=== PATIENT | male | born 1970 | race Caucasian/White ===

== ENCOUNTER 2020-11-22 16:55 | Inpatient (IN) | payer OTHER ==
[2020-11-22 18:10] LABS: BASOPHIL 0.5 % (0-2); EOSINOPHIL 1.1 % (0-5); HCT 48.3 % (42.0-52.0); LYMPHOCYTE 23.6 % (15-48); MCH 28.6 pg (25.0-31.0); MCHC 33.1 g/dL (32.0-36.0); MCV 86.3 fL (78.0-100.0); MONOCYTE 8.2 % (0-12); MPV 9.5 fL (6.0-9.5); NEUTROPHIL 66.2 % (41-80); NRBC 0; PLT 202 K/uL (150-400); RDW 13.2 % (11.5-14.0); WBC 5.5 K/uL (4.0-10.5)
[2020-11-22 18:29] LABS: ALBUMIN 2.7 g/dL (3.4-5.0); BILIRUBIN - TOTAL 0.7 mg/dL (0.2-1.0); BUN/CREAT RATIO (CALC) 14.3 RATIO; CREATININE 0.77 mg/dL (0.67-1.17); GLOBULIN (CALCULATION) 4.6 g/dL; POTASSIUM 3.5 mmol/L (3.5-5.1); TOTAL PROTEIN 7.3 g/dL (6.4-8.2)
[2020-11-22 18:35] LABS: PRO-BNP 66 pg/mL (<125)
[2020-11-22 20:57] LABS: CORONAVIRUS 2019 SARS-COV-2 POSITIVE (NEGATIVE); INFLUENZA A NAA NEGATIVE (NEGATIVE)
[2020-11-23 04:23] LABS: BASOPHIL 0.4 % (0-2); EOSINOPHIL 0 % (0-5); HCT 47.5 % (42.0-52.0); HGB 15.6 g/dl (13.2-18.0); LYMPHOCYTE 13.4 % (15-48); MCH 28.8 pg (25.0-31.0); MCHC 32.8 g/dL (32.0-36.0); MCV 87.8 fL (78.0-100.0); MONOCYTE 2.9 % (0-12); MPV 9.5 fL (6.0-9.5); NRBC 0; PLT 218 K/uL (150-400); RBC 5.41 M/uL (4.70-6.00); RDW 13.2 % (11.5-14.0); WBC 5.2 K/uL (4.0-10.5)
[2020-11-23 04:25] LABS: NEUTROPHIL 82.7 % (41-80)
[2020-11-23 04:49] LABS: ALBUMIN 2.5 g/dL (3.4-5.0); ALKALINE PHOSHATASE 17 U/L (46-116); ALT 23 U/L (16-63); AST 22 U/L (15-37); BILIRUBIN - TOTAL 0.5 mg/dL (0.2-1.0); BUN 11 mg/dL (7-18); BUN/CREAT RATIO (CALC) 15.5 RATIO; C-REACTIVE PROTEIN >18.00 mg/dL (<=0.90); CHLORIDE 99 mmol/L (98-107); CO2 (BICARBONATE) 24 mmol/L (21-32); CREATININE 0.71 mg/dL (0.67-1.17); GLOBULIN (CALCULATION) 5.5 g/dL; GLUCOSE 396 mg/dL (74-106); POTASSIUM 3.9 mmol/L (3.5-5.1)
--- NOTE | 2020-11-23 16:59 | NUR ---
PER MIGUEL, [facility] SHE STATED THAT [facility] DID NOT WANT TO GO BACK TO [place]. TC TO [facility] SHE IS COVID POS AND I CANNOT GO INTO HER ROOM. SHE STATED THAT SHE DID NOT WANT TO GO BACK TO [place] AND THAT SHE DID NOT HAVE A PREFERENCE OF PLACEMENTS. SENT REFERRALS TO [facility], [facility].
--- NOTE | 2020-11-24 15:55 | NUR ---
REQUEST FOR TRAVEL TANK AND HOME CONCENTRATOR SEND TO [facility]. PER DR. LIRIANO, PT. WILL BE ON 4 LITERS, NASAL CANNULA WITH PLANNED DISCHARGE FOR 11/25/20.
[2020-11-25] MEDS ORDERED: AZITHROMYCIN250 MG PO (08:03)
[2020-11-25] MEDS ORDERED: DEXAMETHASONE 2M2 MG PO (08:03)
[2020-11-25] MEDS ORDERED: VITAMIN D325 MC1 PO (08:03)
[2020-11-25] MEDS ORDERED: GLUCOPHAGE850 MG PO (08:03)
[2020-11-25] MEDS ORDERED: LANTUS SOL100 UNIT/1 SC (08:03)
[2020-11-25] MEDS ORDERED: PROVENTIL HFA6.7 GM INH (08:03)
[2020-11-25] MEDS ORDERED: ASCORBIC ACID500 MG PO (08:03)
== END 2020-11-25 17:36 | disposition home or self-care (01) | DRG 177 ==
LOC: FER 16:55 → FMS 21:26
PROVIDERS: Emergency Medicine; Nurse Practitioner; Nurse Practitioner Family; ADMIT Internal Medicine
PROC: 8E0ZXY6 Isolation (ICD-10-PCS; principal; 2020-11-22)
PROC: XW033E5 Introduction of Remdesivir Anti-infective into Peripheral Vein, Percutaneous Approach, New Technology Group 5 (ICD-10-PCS; 2020-11-22)
PROC: 3E0333Z Introduction of Anti-inflammatory into Peripheral Vein, Percutaneous Approach (ICD-10-PCS; 2020-11-22)
DX: U07.1 COVID-19 (principal); J12.82 Pneumonia due to coronavirus disease 2019; J96.01 Acute respiratory failure with hypoxia; Z68.43 Body mass index [BMI] 50.0-59.9, adult; R53.83 Other fatigue; F41.9 Anxiety disorder, unspecified; F32.9 Major depressive disorder, single episode, unspecified; N52.9 Male erectile dysfunction, unspecified; E11.9 Type 2 diabetes mellitus without complications; Z66 Do not resuscitate; G47.30 Sleep apnea, unspecified; E66.01 Morbid (severe) obesity due to excess calories
CPT/HCPCS: 36415; 36600; 71045; 71275; 80053; 82728; 82803; 83036; 83605; 83880; 84145; 84484; 85025; 85379; 86140; 87040; 93005; 94640; 94664; 94760; C9399; J0456; J0696; J1100; J1650; J2060; J2405; J7030; J7050; J8540; Q9967; U0002

== ENCOUNTER 2021-11-27 01:03 | Emergency (ER) | payer OTHER ==
[~2021-11-27 01:03] MED LIST: ASCORBIC ACID500 MG PO; AZITHROMYCIN250 MG PO; DEXAMETHASONE 2M2 MG PO; GLUCOPHAGE850 MG PO; LANTUS SOL100 UNIT/1 SC; PROVENTIL HFA6.7 GM INH; VITAMIN D325 MC1 PO
[2021-11-27 01:40] LABS: BASOPHIL 0.6 % (0-2); EOSINOPHIL 3.5 % (0-5); HGB 16.1 g/dl (13.2-18.0); LYMPHOCYTE 39.8 % (15-48); MCHC 34.3 g/dL (32.0-36.0); MCV 84.5 fL (78.0-100.0); MONOCYTE 6.7 % (0-12); NEUTROPHIL 49.2 % (41-80); NRBC 0; PLT 250 K/uL (150-400); RBC 5.56 M/uL (4.70-6.00); RDW 13.2 % (11.5-14.0); WBC 8.5 K/uL (4.0-10.5)
[2021-11-27 01:42] LABS: INR 1.01 (0.9-1.2); PROTHROMBIN TIME 12.7 SECONDS (11.8-13.4); PTT 32.7 SECONDS (24.4-34.7)
[2021-11-27 02:18] LABS: CREATININE 0.82 mg/dL (0.67-1.17); POTASSIUM 3.7 mmol/L (3.5-5.1)
[2021-11-27 02:22] LABS: ALBUMIN 3.4 g/dL (3.4-5.0); BILIRUBIN - TOTAL 0.4 mg/dL (0.2-1.0); GLOBULIN (CALCULATION) 4.3 g/dL; TOTAL PROTEIN 7.7 g/dL (6.4-8.2)
== END 2021-11-27 05:41 | disposition home or self-care (01) ==
LOC: FER 01:03
PROVIDERS: Emergency Medicine
DX: R07.89 Other chest pain (principal); E11.9 Type 2 diabetes mellitus without complications; Z20.822 Contact with and (suspected) exposure to COVID-19; Z86.16 Personal history of COVID-19
CPT/HCPCS: 36415; 71045; 80053; 84484; 85025; 85610; 85730; 93005; J1885; U0002